=== PATIENT | male | born 1940 | race Caucasian/White ===

== ENCOUNTER 2016-07-09 07:24 | Emergency (ER) | payer OTHER, MEDICARE ==
[~2016-07-09] VITALS: Ht 170.2 cm; Wt 79.6 kg
[2016-07-09 07:25] VITALS: BP 140/70
== END 2016-07-09 10:20 | disposition home or self-care (01) ==
LOC: EME 07:24
DX: S27.818A Other injury of esophagus (thoracic part), initial encounter (principal); X58.XXXA Exposure to other specified factors, initial encounter; H92.03 Otalgia, bilateral; H57.8 Other specified disorders of eye and adnexa
CPT/HCPCS: 70360; 99281; 99282

== ENCOUNTER 2017-12-24 11:18 | Observation (INO) | payer OTHER, MEDICARE ==
[~2017-12-24] VITALS: Ht 175.3 cm; Wt 85.0 kg
[2017-12-24 11:59] LABS: BASOPHIL (%) 0.5 % (0-1); EOSINOPHIL (%) 1.4 % (0-5); EOSINOPHIL COUNT 0.1 K/uL (0-0.3); HEMOGLOBIN 13.7 G/DL (12.5-16.6); IMMATURE GRANULOCYTE (%) 0.2 % (0.0-0.7); LYMPHOCYTE (%) 38.5 % (15-42); LYMPHOCYTE COUNT 2.2 K/uL (1.0-2.8); MCH 30.3 PG (29.0-34.0); MCHC 34.3 G/DL (30.0-36.0); MCV 88.5 FL (86-99); MONOCYTE (%) 9.3 % (3-12); MONOCYTE COUNT 0.5 K/uL (0-0.8); NEUTROPHIL (%) 50.1 % (45-76); NEUTROPHIL COUNT 2.8 K/uL (1.8-6.4); PLATELET COUNT 179 K/uL (156-360); RBC DIS.WIDTH-CV 13.4 % (11.8-14.6); RBC DIS.WIDTH-SD 43.8 % (39-53); RED BLOOD COUNT 4.52 M/uL (4.00-5.50); WHITE BLOOD COUNT 5.6 K/uL (4.1-10.2)
[2017-12-24 12:09] LABS: AMYLASE 85 IU/L (1-118); CHLORIDE 103 mEq/L (99-109); SODIUM 141 mEq/L (136-147)
[2017-12-24 12:10] LABS: GLUCOSE 108 mg/dL (70-99)
[2017-12-24 12:13] LABS: CREATININE 1.2 mg/dL (0.6-1.3); GFR ESTIMATE (CALCULATED) > 59 mL/min/ (58.99-99999); SERUM ETHYL ALCOHOL < 10 mg/dL
[2017-12-24 12:14] LABS: UREA NITROGEN (BUN) 17 mg/dL (9-23)
[2017-12-24 12:16] LABS: LIPASE 59 U/L (1.0-51.0)
[2017-12-24 12:18] LABS: PTT 28.3 SEC (25-37)
[2017-12-24 12:20] LABS: TROP-I INTERPRETATION NEGATIVE; TROPONIN-I 0.02 ng/mL (0.0-0.30)
[2017-12-24 13:08] LABS: APPEARANCE CLEAR ((CLEAR)); BILIRUBIN NEGATIVE; BLOOD NEGATIVE; COLOR STRAW ((YELLOW)); GLUCOSE (STRIP) NEGATIVE; KETONES NEGATIVE; LEUKOCYTES NEGATIVE; NITRITE NEGATIVE; PROTEIN (STRIP) NEGATIVE; SPECIFIC GRAVITY 1.008 (1.000-1.030); UCUL ADDED? NO; UROBILINOGEN 0.2 MG/DL (0.2-1.0)
[2017-12-24 13:15] LABS: AMPHETAMINE NEGATIVE (500 ng/mL); BARBITURATES NEGATIVE (200 ng/mL); BENZODIAZEPINES NEGATIVE (150 ng/mL); BUPRENORPHINE NEGATIVE (10 ng/mL); COCAINE NEGATIVE (150 ng/mL); METHADONE NEGATIVE (200 ng/mL); METHAMPHETAMINE NEGATIVE (500 ng/mL); OPIATES (MORPHINE) NEGATIVE (100 ng/mL); OXYCODONE NEGATIVE (100 ng/mL); PHENCYCLIDINE NEGATIVE (25 ng/mL); PROPOXYPHENE NEGATIVE (300 ng/mL); THC CANNABINOIDS NEGATIVE (50 ng/mL); TRICYCLIC ANTIDEPRESSANTS NEGATIVE (300 ng/mL)
[2017-12-24] MEDS ORDERED: GLIMEPIRIDE2 MG PO (14:18)
[2017-12-24] MEDS ORDERED: ATORVASTATIN CA40 MG PO (14:18)
[2017-12-24] MEDS ORDERED: LISINOPRIL5 MG PO (14:18)
[2017-12-24] MEDS ORDERED: METFORMIN HCL500 MG PO (14:19)
[2017-12-24] MEDS ORDERED: FUROSEMIDE20 MG PO (14:19)
[2017-12-24] MEDS ORDERED: ASPIR 8181 M1 PO (14:20)
[2017-12-24] MEDS ORDERED: PRESERVISION A1 EAC2 PO (14:20)
[2017-12-24 16:58] VITALS: BP 143/68
[2017-12-24 17:08] LABS: HDL CHOLESTEROL 49 MG/DL (Desirable>=40); LDL CHOLESTEROL 70 mg/dL (Desirable<100); NON-HDL CHOLESTEROL 90 mg/dL (Desirable<160); TOTAL CHOLESTEROL 139 mg/dL (Desirable<200); TRIGLYCERIDES 101 MG/DL (Normal: <150)
[2017-12-24 21:00] VITALS: BP 125/77
[2017-12-25 00:23] VITALS: BP 117/64
[2017-12-25 04:17] VITALS: BP 120/64
[2017-12-25 08:50] VITALS: BP 144/63
[2017-12-25 11:25] LABS: HEMOGLOBIN A1c (GLYCOHEMOGLOB) 6.7 % (Below 5.7)
[2017-12-25 12:21] VITALS: BP 139/65
== END 2017-12-25 15:30 | disposition home or self-care (01) ==
LOC: EME 11:18 → EDOF 14:57 → ENRESERV 14:58 → 4SOUTH 16:07
PROVIDERS: Emergency Medicine; Family Medicine
DX: T78.3XXA Angioneurotic edema, initial encounter (principal); R47.81 Slurred speech; R20.0 Anesthesia of skin; E11.9 Type 2 diabetes mellitus without complications; E78.5 Hyperlipidemia, unspecified; I10 Essential (primary) hypertension; I65.23 Occlusion and stenosis of bilateral carotid arteries
CPT/HCPCS: 70450; 80048; 80048 91; 80061; 81003; 82150; 82948; 83036; 83690; 84484; 85025; 85027; 85610; 85730; 86850; 86900; 86901; 93005; 93880; 99281; 99285; G0378; G0480; J1650